=== PATIENT | female | born 1945 | race Caucasian/White ===

== ENCOUNTER → 2016-12-21 | Outpatient (CLI) | payer OTHER ==
[~2016-12-21] MED LIST: ATEN-173 PO; BUSP5TAB59 PO; CALC1TAB9 PO; CHOL100010 PO; CRAN1CAP15 PO; EPP3/2 IM; ESTR1CRE PV; FLM4 PO; LORA-741 PO; METO10SO PO; MISC1CAP58 PO; OMEG10007 PO; PROB1TAB16 PO; PSYL55.43 PO; QUIN40TA18 PO; RANI150T3 PO; SIMV20TA2 PO
--- NOTE | 2016-12-21 14:54 | MAMMOGRAPHY REPORT ---
BILATERAL DIGITAL SCREENING MAMMOGRAM WITH CAD: 12/21/2016 CLINICAL HISTORY: Routine screening. Patient has no complaints. TECHNIQUE: Bilateral CC and MLO views were obtained. Current study was also evaluated with a Comput er Aided Detection (CAD) system. COMPARISON: Comparison is made to exams dated: 12/20/2015 mammogram, 11/16/2014 mammogram, 10/23/2013 m ammogram, 01/13/2013 ultrasound, 01/13/2013 mammogram, and 01/13/2013 mammogram - [facility]. BREAST COMPOSITION: There are scattered areas of fibroglandular density in both breasts. FINDINGS: There is a 7 mm nodular asymmetry in the posterior right breast, along the posterior nipple line on the MLO view, thought to project medially based on the CC view. Although this could represe nt overlapping fibroglandular tissue, additional spot compression tomosynthesis views and possibly ul trasound are recommended. There are scattered bilateral benign appearing coarse and round microcalcifications. No other suspici ous mass, architectural distortion or cluster of suspicious microcalcifications is seen. IMPRESSION: ACR BI-RADS CATEGORY 0: INCOMPLETE EVALUATION: NEED ADDITIONAL IMAGING EVALUATION The 7 mm nodular asymmetry in the posterior right breast needs additional evaluation. The patient will be called to schedule an appointment. Approximately 10% of breast cancers are not detected with mammography. A negative mammographic report should not delay biopsy if a clinically suggestive mass is present. Sallie Berry M.D. ay/:12/21/2016 12:09:23 Money Examiner: Gwendolyn Harding, [facility] letter sent: Addl Imaging 0 BI-RADS Code: ACR BI-RADS Category 0: Incomplete Evaluation: Need Additional Imaging Evaluation
== END | disposition home or self-care (01) ==
LOC: C.MAMM 11:54
PROVIDERS: ATTEND Family Medicine
DX: Z12.31 Encounter for screening mammogram for malignant neoplasm of breast (principal); N64.89 Other specified disorders of breast

== ENCOUNTER → 2016-12-30 | Outpatient (CLI) | payer OTHER ==
--- NOTE | 2016-12-30 16:08 | MAMMOGRAPHY REPORT ---
UNILATERAL RIGHT DIGITAL DIAGNOSTIC MAMMOGRAM TOMOSYNTHESIS AND TARGETED RIGHT ULTRASOUND: 12/30/2016 CLINICAL HISTORY: 71-year-old woman called back from screening mammography for a nodular asymmetry in the posterior left breast along the posterior nipple line on the MLO view, possibly projecting media lly based on the CC view. TECHNIQUE: Spot compression 2-D digital and tomosynthesis right CC and MLO views were obtained. COMPARISON: Comparison is made to exams dated: 12/21/2016 mammogram, 12/20/2015 mammogram, 11/16/2014 m ammogram, 10/23/2013 mammogram, 01/13/2013 ultrasound, and 01/13/2013 mammogram - [facility]. BREAST COMPOSITION: There are scattered areas of fibroglandular density in the right breast. FINDINGS: There is partial effacement of the 7 mm nodular asymmetry with the additional supplemental spot compression right MLO view and no definite persistent mass on the corresponding tomosynthesis i mages. No definite persistent mass or asymmetry on the spot compression right CC view, including the corresponding tomosynthesis images. There are stable scattered and grouped benign-appearing punctat e microcalcifications and benign rim calcifications in the right breast. Targeted ultrasound was performed throughout the superior and medial right breast. Normal fibrogland ular tissue is seen without a discrete solid or cystic mass. IMPRESSION: ACR-BI-RADS CATEGORY 3: PROBABLY BENIGN, TARGETED ULTRASOUND ACR-BI-RADS CATEGORY 3: PRO BABLY BENIGN There is near-complete effacement of the right breast asymmetry versus asymmetries on the spot compre ssion CC and MLO views, and no suspicious sonographic abnormality was identified. The asymmetries mo st likely represented normal overlapping fibroglandular tissue, however, a short interval follow-up d iagnostic right mammogram including tomosynthesis images and possible repeat ultrasound is recommende d to ensure stability in 6 months. These results and recommendations were discussed with the patient at the time of the exam. Approximately 10% of breast cancers are not detected with mammography. A negative mammographic report should not delay biopsy if a clinically suggestive mass is present. Sallie Berry M.D. ay/:12/30/2016 14:47:16 Coagulating Bath Operator: Gwendolyn FARIAS(R)(Marisol), [facility] letter sent: Follow Up Recommended 3 BI-RADS Code: ACR-BI-RADS Category 3: Probably Benign Ultrasound BI-RADS: ACR-BI-RADS Category 3: Pr obably Benign
== END | disposition home or self-care (01) ==
LOC: C.MAMM 13:57
PROVIDERS: ATTEND Family Medicine
DX: N64.89 Other specified disorders of breast (principal)

== ENCOUNTER → 2017-06-21 | Outpatient (CLI) | payer OTHER ==
--- NOTE | 2017-06-21 15:09 | MAMMOGRAPHY REPORT ---
UNILATERAL RIGHT DIGITAL DIAGNOSTIC MAMMOGRAM TOMOSYNTHESIS WITH CAD: 06/21/2017 CLINICAL HISTORY: 71-year-old woman initially called back from screening mammography in December 2016 for a 7 mm nodular asymmetry in the posterior right breast along the posterior nipple line on the MLO vi ew. The asymmetry effaced with additional imaging and no suspicious sonographic correlate was identi fied, now she presents for follow-up in the right breast. TECHNIQUE: Right breast tomosynthesis in addition to standard 2D mammography was performed. Spot mag nification right CC and ML views were also obtained. Current study was also evaluated with a Compute r Aided Detection (CAD) system. COMPARISON: Comparison is made to exams dated: 12/30/2016 mammogram, 12/30/2016 ultrasound, 12/21/2016 mammogram, 12/20/2015 mammogram, 11/16/2014 mammogram, and 10/23/2013 mammogram - [facility]. BREAST COMPOSITION: There are scattered areas of fibroglandular density in the right breast. FINDINGS: The full field views of the right breast demonstrate no persistent 7 mm nodular asymmetry i n the posterior right breast on the MLO view, as seen on the December 2016 screening mammogram. This con firms benignity. No new suspicious mass, developing asymmetry or focal area of architectural distort ion is identified. However there are increasingly conspicuous microcalcifications in the lateral rig ht breast for which additional spot magnification views were obtained. The spot magnification views of the right breast demonstrate loosely grouped and clustered punctate microcalcifications, which kath ear more diffusely scattered based on the spot magnification ML view. When comparing back to all ralph ilable prior mammograms, these microcatheter calcifications have been present dating back to at least 2012 and possibly on more remote mammograms given slight differences in technique. They most likely represent benign fibrocystic changes but given slight increased conspicuity, a short interval follow -up right diagnostic mammogram including spot magnification views is recommended to ensure stability in 6 months. IMPRESSION: ACR-BI-RADS CATEGORY 3: PROBABLY BENIGN 1. The 7 mm nodular asymmetry in the posterior right breast along the posterior nipple line on the M LO view is no longer seen, confirming benignity. 2. Clustered and grouped punctate microcalcifications in the lateral right breast were increased in conspicuity comparing to prior mammograms and additional spot magnification views were obtained. On the spot magnification views, there are similar appearing groupings and clusters of microcavitation c alcifications throughout the entire right breast. Given the diffuse nature they most likely represen t benign fibrocystic change. However, a short interval follow-up right diagnostic tomosynthesis mamm ogram including repeat spot magnification views is recommended in 6 months. Annual left mammography will also be due at that time. These results and recommendations were discussed with the patient at the time of the exam. Approximately 10% of breast cancers are not detected with mammography. A negative mammographic report should not delay biopsy if a clinically suggestive mass is present. Sallie Berry M.D. ay/:06/21/2017 12:21:58 Foreclosure Specialist: Gwendolyn Harding, [facility] letter sent: Follow Up Recommended 3 BI-RADS Code: ACR-BI-RADS Category 3: Probably Benign
== END | disposition home or self-care (01) ==
LOC: C.MAMM 10:53
PROVIDERS: ATTEND Nurse Practitioner
DX: N64.89 Other specified disorders of breast (principal); R92.0 Mammographic microcalcification found on diagnostic imaging of breast